=== PATIENT | male | born 1965 | race Caucasian/White ===

== ENCOUNTER 2017-06-03 06:57 | Emergency (ER) | payer BC ==
--- NOTE | 2017-06-03 07:43 | EDM.PDOC ---
ED HPI GENERAL MEDICAL PROBLEM - General Chief Complaint: ENT Problem Stated Complaint: BLOODY NOSE Time Seen by Provider: 06/03/17 07:20 Source of Information: Reports: Patient History Limitations: Reports: No Limitations - History of Present Illness INITIAL COMMENTS - FREE TEXT/NARRATIVE: 51-year-old male who has chronic atrial fibrillation and is on Xarelto. He is up here for a deer [place]. 2 hours ago he developed persistent left epistaxis and is unable to get it stopped. No trauma. It is persistently bleeding out of the left nares Onset: Sudden Duration: Hour(s): (2 hours ago) Severity: Moderate Improves with: Reports: Other (External pressure seems to control the bleeding) - Related Data Allergies Allergy/AdvReac Type Severity Reaction Status Date / Time No Known Allergies Allergy Verified 06/03/17 07:09 Home Meds: Home Meds Allopurinol [Zyloprim] 300 mg PO DAILY 06/03/17 [History] Digoxin [Digox] 125 mcg PO DAILY 06/03/17 [History] Metoprolol Tartrate 25 mg PO BID 06/03/17 [History] Pantoprazole [ProTONIX] 06/03/17 [History] Rivaroxaban [Xarelto] 20 mg PO DAILY 06/03/17 [History] Valsartan 06/03/17 [History] Past Medical History - Past Health History Medical/Surgical History: Denies Medical/Surgical History HEENT History: Reports: Impaired Vision Cardiovascular History: Reports: Afib, Hypertension - Past Surgical History GI Surgical History: Reports: Cholecystectomy Social & Family History - Tobacco Use Smoking Status *Q: Never Smoker - Caffeine Use Caffeine Use: Reports: Coffee - Recreational Drug Use Recreational Drug Use: No ED ROS ENT - Review of Systems Review Of Systems: See Below Constitutional: Denies: Fever, Chills Respiratory: Denies: Shortness of Breath GI/Abdominal: Denies: Nausea, Vomiting Neurological: Denies: Headache ED EXAM, ENT - Physical Exam Exam: See Below Exam Limited By: No Limitations General Appearance: Alert, No Apparent Distress Nose: Active Bleeding, Other (After external pressure was applied to the nares for 10 minutes, the pressure was removed and the bleeding recurred fairly briskly out of the left nares) Respiratory/Chest: No Respiratory Distress Course - Vital Signs Last Recorded V/S: Last Vital Signs Temp 96.4 F 06/03/17 07:15 Pulse 92 06/03/17 07:15 Resp 16 06/03/17 07:15 BP 147/101 H 06/03/17 07:15 Pulse Ox 95 06/03/17 07:15 - Re-Assessments/Exams Free Text/Narrative Re-Assessment/Exam: 06/03/17 07:56 Because of the persistent bleeding despite external pressure, a 5.5 cm rapid Rhino was placed without complications and of the left side. This controlled the bleeding. Patient was discharged with instructions to remove the packing in 36-48 hours. He can recheck sooner if bleeding persists despite the packing. Departure - Departure Time of Disposition: 07:46 Disposition: Home, Self-Care 01 Condition: Good Clinical Impression: Epistaxis - Discharge Information Instructions: Nosebleed, [id number] Referrals: PCP,None [Primary Care Provider] - Forms: ED Department Discharge Care Plan Goals: Packing can be removed tomorrow afternoon. Return sooner if bleeding recurs despite the packing or you have other concerns.
== END 2017-06-03 07:46 | disposition home or self-care (01) ==
LOC: JP.ED 06:57
DX: R04.0 Epistaxis (principal); I10 Essential (primary) hypertension; Z79.899 Other long term (current) drug therapy
CPT/HCPCS: 30903; 99283-25